=== PATIENT | female | born 1935 ===

== ENCOUNTER → 2023-06-08 14:59 | Outpatient (REF) | payer MEDICARE, OTHER, SELFPAY | LOC: PAVMRI 14:59 | PROVIDERS: ATTENDING PHYSICIAN Specialist; FAMILY PHYSICIAN Internal Medicine | DX: M54.16 Radiculopathy, lumbar region (principal) | CPT/HCPCS: 72148 ==

== ENCOUNTER → 2023-06-24 12:35 | Outpatient (REF) | payer MEDICARE, OTHER, SELFPAY | LOC: DHCBC HW 12:35 | PROVIDERS: ATTENDING PHYSICIAN Internal Medicine Cardiovascular Disease; FAMILY PHYSICIAN Internal Medicine | DX: I48.0 Paroxysmal atrial fibrillation (principal); Z95.2 Presence of prosthetic heart valve | CPT/HCPCS: 93306 ==

== ENCOUNTER → 2024-06-28 10:29 | Outpatient (REF) | payer MEDICARE, OTHER, SELFPAY | LOC: HWRCS 10:29 | PROVIDERS: ATTENDING PHYSICIAN Internal Medicine Cardiovascular Disease; FAMILY PHYSICIAN Internal Medicine | DX: I48.0 Paroxysmal atrial fibrillation (principal); Z95.2 Presence of prosthetic heart valve | CPT/HCPCS: 93306 ==

== ENCOUNTER 2024-11-19 23:14 | Observation (INO) | payer MEDICARE, OTHER, SELFPAY ==
[2024-11-19 20:03] VITALS: BP 150/74
[2024-11-19 20:07] VITALS: BP 151/73
[2024-11-19 20:31] LABS: Hematocrit 35.8 % (37.0-47.0); Hemoglobin 11.9 g/dL (12.0-16.0); Mean Corp Hgb Conc. 33.2 g/dL (33.0-37.0); Mean Corpuscular Volume 94.7 fL (81.0-99.0); Nucleated Red Blood Cells % 0 %; Platelet Count 205 10^3/uL (130-400); Red Cell Dist. Width 13.9 % (11.5-14.5)
--- NOTE | 2024-11-19 20:38 | ED.GENMED ---
History of Present Illness
General
Chief Complaint: Fainting/Passed Out
Source: patient and family
Exam Limitations: none
Time Seen by Provider: 11/19/24 20:38
History of Present Illness
History of Present Illness:
Patient had been at a wedding. She felt like she had to go to the bathroom. She was wheeled into the bathroom. Before she get into the stool she passed out. They said her heart rate was low and she was pale. She had no preceding chest pain or
shortness of breath. She is at baseline now. There was no trauma. She had a similar episode 1 month ago while on the toilet and was taken to [place] and cleared.
Past History
Past History
ED Past Medical History: CVA, GERD and Valvular disease
ED Past Surgical History: Cardiac
Social History
Tobacco: Non-smoker
Living: with family
Phy Exam
Physical Exam
Physical Exam:
GENERAL: Alert and oriented in no apparent distress. Normocephalic atraumatic
EYE: Orbits normal.
NECK: Supple, no significant adenopathy.
ENT: Pharynx without erythema
CARDIAC: Regular rate and rhythm without any obvious murmurs.
LUNGS: Clear breath sounds,normal
ABDOMEN: Soft, without focal tenderness or distention
NEUROLOGICAL: Alert and oriented , grossly non-focal. Cranial nerves II through XII intact. Speech normal.
SKIN: Warm and dry, no rash or lesion, no discoloration, skin intact.
MUSCULOSKELETAL: No edema,no deformity.Good color
PSYCH: Normal and appropriate interaction.
Course
Orders/Labs/Results
Orders:
Orders
11/19/24 20:17
Electrocardiogram (*1) Urgent
Reason for Study: Syncope
EKG- Treatment ONCE
11/19/24 20:23
Complete Blood Count/With Diff Urgent
Comprehensive Metabolic Panel Urgent
11/19/24 20:57
0.9% Sodium Chloride 500 ml [Nss] 500 ml IV BOLUS
11/19/24 20:59
Troponin I Urgent
Abnormal Lab Results
11/19/24
20:23
RBC 3.78 L 10^6/uL
(4.20-5.40)
Hgb 11.9 L g/dL
(12.0-16.0)
Hct 35.8 L %
(37.0-47.0)
MCH 31.5 H pg
(27.0-31.0)
Absolute Neuts (auto) 6.8 H 10^3/uL
(1.4-6.5)
Lymphocytes % 16.2 L %
(20.5-51.1)
Chloride 108 H mmol/L
(98-107)
BUN 28 H mg/dl
(7-17)
Creatinine 1.3 H mg/dL
(0.6-1.0)
Glucose 133 H mg/dl
(70-99)
Total Protein 6.1 L g/dl
(6.3-8.2)
11/19/24 20:23
11/19/24 20:23
Vital Signs
Initial and Last Documented VS:
Initial Vital Signs
Temp Pulse Resp BP Pulse Ox
97.4 F 68 16 150/74 98
11/19/24 20:03 11/19/24 20:03 11/19/24 20:03 11/19/24 20:03 11/19/24 20:03
Last Documented Vital Signs
Temp Pulse Resp BP Pulse Ox
97.4 F 67 18 151/73 100
11/19/24 20:03 11/19/24 20:45 11/19/24 20:45 11/19/24 20:07 11/19/24 20:45
MDM/Problems Addressed
Differential Diagnosis Includes:
This was very likely vasovagal syncope. Patient is stable. Previous episode also sounds consistent with vasovagal. Will monitor check labs check cardiac testing. Then make a joint decision with family of admission overnight versus discharge
*Pulse Oximetry
SaO2: 98
Oxygen Mode of Delivery: Room air
Patient hypoxic: no
*EKG
Interpreted by ED Provider?: Yes
Interpretation: normal
Comparison EKG: no comparison EKG present
Heart Rate: 62
Rate: normal
Rhythm: sinus
[place]: normal axis
Interval: normal interval
QRS Pattern: normal QRS and left vent hypertrophy
Ischemia: non-specific ST changes
*Critical Care Note
Total Time (30-74mins, 75-104mins- exclusive of procedures): Not Applicable
ED Attending Note
-
Portions of this chart may have been created with voice recognition software.� Occasional wrong word or��sound alike� substitutions may have occurred due to the inherent limitations of voice recognition software.
Discharge Plan
Departure
Patient Disposition: Admit
Date of Disposition: 11/19/24
Time of Disposition: 22:32
Presentation/result/management discussed w/ accepting MD/DO: Hospitalist
Discharge Problem:
Syncope
Prescriptions:
No Action
amiodarone 200 mg Tablet
200 mg PO DAILY
lisinopril 10 mg Tablet
10 mg PO DAILY
rosuvastatin 5 mg Tablet
5 mg PO HS
trazodone 50 mg Tablet
50 mg PO HS
buprenorphine 5 mcg/hour Patch Weekly
1 patch TRANSDERMAL Q7D
acetaminophen 500 mg tablet
1,000 mg PO TID
docusate sodium [Colace] 100 mg capsule
100 mg PO HS
aspirin 81 mg Capsule
81 mg PO DAILY
Referrals:
UNKNOWN - PT DOES,NOT KNOW [Family Provider]
Interventions
Interventions:
*Risk Screen - Suicide Last Done: 11/19/24 20:03
*General Assessment Last Done: 11/19/24 20:18
*Neglect/Abuse Screening Last Done: 11/19/24 20:03
ED- Cardiac Assessment Last Done: 11/19/24 20:18
ED- Neurological Assessment Last Done: 11/19/24 20:18
Discharge Date and Time
Print Language: UKRAINIAN
[2024-11-19 20:57] LABS: ALT (SGPT) 18 U/L (0-35); AST (SGOT) 25 U/L (14-36); Albumin 4.1 g/dl (3.5-5.0); Alkaline Phosphatase 46 U/L (38-126); Blood Urea Nitrogen 28 mg/dl (7-17); Calcium 8.9 mg/dl (8.4-10.2); Carbon Dioxide 23 mmol/L (22-30); Chloride 108 mmol/L (98-107); Glucose 133 mg/dl (70-99); Potassium 4.5 mmol/L (3.5-5.1); Sodium 138 mmol/L (135-145); Total Protein 6.1 g/dl (6.3-8.2); eGFR 39.31
[2024-11-19] MEDS: NSS 500 IV (21:11)
[2024-11-19 21:30] LABS: Troponin I 0.017 ng/ml
--- NOTE | 2024-11-19 22:36 | HPS.HSE ---
Family Physician
-
Family Physician: NOT KNOW UNKNOWN - PT DOES
Chief Complaint
-
Syncope
History of Present Illness
Patient is an 89 y/o female past medical history of CVa, valvular heart disease, atrial fibrillation, hypertension, chronic kidney disease and chronic pain syndrome who presents following a syncopal episode. Patient was out to dinner at a local
dinner. She had the sudden urge to move her bowels. Her caregiver took her into the bathroom. Patient was unable to transfer from her wheelchair to the toilet due to the configuration of the restroom. While still in the bathroom patient had a
syncopal episode. EMS was called who noted patient to appear pale and have a low heart rate. Patient denies any preceding chest pain or palpitations. Family notes had a similar episode about a month ago which was also related to bowel movement.
Upon further discussion with patient's caregiver we learned that patient has been complaining about constipation and drank prune juice earlier today.
Medical History
Past Medical History
Past Medical History: Reports Other
Additional Past Medical History:
CVA with Residual Right Hemiparesis, Ataxia and Foot Drop
Aortic Stenosis s/p TAVR
Paroxysmal Atrial Fibrillation s/p Watchman Device
Essential Hypertension
Hyperlipidemia
CKD Stage IIIB
Obstructive Sleep Apnea
Anxiety / Insomnia
Chronic Pain Syndrome
Past Surgical History: Reports Other
Additional Past Surgical History:
TAVR
Watchman Device
Left Total Knee Replacement
Social History
Tobacco: Non-smoker
Family History
Family History: Not pertinent
Allergies / Home Medications
Allergies reflects when Allergies were last updated in [employer].
Home Medications with original date entered in [employer]
Allergy/Medication List:
Allergies
Allergy/AdvReac Type Severity Reaction Status Date / Time
No Known Allergies Allergy Verified 11/19/24 20:08
Home Medications
amiodarone 200 mg tablet 200 mg PO DAILY Arrhythmia 12/30/22
lisinopril 10 mg tablet 10 mg PO DAILY Blood Pressure 12/30/22
rosuvastatin 5 mg tablet 5 mg PO HS High Cholesterol 12/30/22
acetaminophen 500 mg tablet 1,000 mg PO TID 11/19/24
aspirin 81 mg capsule 81 mg PO DAILY 11/19/24
buprenorphine 5 mcg/hour weekly transdermal patch 1 patch transdermal Q7D 11/19/24
docusate sodium 100 mg capsule (Colace) 100 mg PO HS stool softner 11/19/24
trazodone 50 mg tablet 50 mg PO HS 11/19/24
Review of Systems
-
A 12 point ROS was completed and negative except as noted: Yes
Constitutional: Denies Fever or Chills
Respiratory: Denies Cough or Trouble Breathing
Cardiac: Reports See HPI
Physical Exam
Vital Signs
Vital Signs
Temp Pulse Resp BP Pulse Ox
97.4 F 67 18 151/73 100
11/19/24 20:03 11/19/24 20:45 11/19/24 20:45 11/19/24 20:07 11/19/24 20:45
Physical Exam
General: Comfortable and Conversant
HEENT: Anicteric and Moist mucous membranes
Respiratory: Clear and Non Labored Respirations
Cardiac: S1/S2, Regular Rhythm and Murmur
GI: Soft, Non Tender and Other (Slightly hyperactive bowel sounds)
Musculoskeletal: No Clubbing and No Cyanosis
Skin: Warm and Dry
Neuro: Awake, Alert and Other (Chronic right hemiparesis)
Psych: Calm
Laboratory Results
-
11/19/24 20:23
11/19/24 20:23
Laboratory Results
Total Bilirubin 0.6 mg/dl (0.2-1.3) 11/19/24 20:23
AST 25 U/L (14-36) 11/19/24 20:23
ALT 18 U/L (0-35) 11/19/24 20:23
Alkaline Phosphatase 46 U/L (38-126) 11/19/24 20:23
Troponin I 0.017 ng/ml 11/19/24 20:59
Data Reviewed
-
Lab Data: Labs Reviewed by me
Old Records: Reviewed
Impression/Plan
-
Syncope, suspect vasovagal in nature
-Monitor on telemetry
-Check orthostatic vital signs
Constipation
-Reviewed with patient to avoid prune juice in the future
-Start MiraLAX
Paroxysmal Atrial Fibrillation s/p Watchman Device
-Continue amiodarone
Essential Hypertension
-Continue lisinopril
Hyperlipidemia
-Continue rosuvastatin
CKD Stage IIIB
-Creatinine at baseline
Anxiety / Insomnia
-Continue trazodone
Chronic Pain Syndrome
-Continue buprenorphine patch
Hx CVA with Residual Right Hemiparesis, Ataxia and Foot Drop
-Continue aspirin
Hx Aortic Stenosis s/p TAVR
DVT proph: SCDs
--- NOTE | 2024-11-19 22:38 | W.PN.UPDATE ---
Update Note
Progress Note Update
Patient seen in conjunction with ASSEMBLY SUPERVISOR. I agree with the findings on history and physical. Concur with assessment and plan unless stated otherwise.
Briefly, this is a 89-year-old female with past medical history significant for atrial fibrillation on amiodarone status post watchman, s/p TAVR and not anticoagulated, hypertension, hyperlipidemia, history of sleep apnea presenting to the
emergency department after experiencing a syncopal episode at home witnessed by family members.
Patient had been at a wedding and was being wheeled to go to the bathroom. Before she could get on the stool she had a syncopal episode. He is not clear for exactly how long. Family reported that she appeared pale with low heart rate and was
unresponsive, loudly snoring. She came back to while in the ambulance en route to the emergency department. She had no prior complaints and appears to be back at baseline. Family reports a similar episode 1 month ago while on the toilet for which
she was taken to [place] and evaluation was negative for any organic process at that time.
Patient has been fixated on bowel movements recently. She is taking laxatives which she finds to be intermittently ineffective. Today she took laxatives as well as additional prune juice during the daytime. She started noticing abdominal cramps
and needed to use the toilet. She denied having nausea. She did not vomit. She does PA down to have a bowel movement and it appears that she started having difficulty while going for a bowel movement. She has chronic back pain and is mostly
wheelchair-bound. She is on buprenorphine patch for chronic pain as she is not a candidate for any surgical procedure and failled spinal stimulator.
He reports no recent medication changes. She has had no complaints of palpitations lightheadedness or dizziness. Denies any recent melena or hematochezia. There is been no recent diarrhea. There have been no recent chest pain or exertional
dyspnea.
In the emergency department she was afebrile, blood pressure was 150/70 with a pulse of 67 and she was satting 100% on room air. ECG showed a normal sinus rhythm without any interval abnormalities. Troponin was negative. CBC was unremarkable.
Electrolytes were all normal. BUN/creatinine were unchanged from prior at 28 and 1.3 with a normal glucose of 133.
Echo from June 2024 shows preserved EF of 65%, normal wall motion, normal RV, s/p TAVR showing well seated valves with 26/15 mmHg peak/mean gradient. There was stable LA enlargement.
Assessment and plan
Syncope - Highly suspicious for a vasovagal episode. She has been having large, watery BMS 2/2 laxative use since arrival in ED. No evidence of dehydration. No evidence of acute infection.
- admit to telemetry observation x 24 hours
- orthostatic vs
- s/p small fluid bolus in ED
- cycle cardiac enzymes x 1
- hold aggressive laxatives as patient having voluminous bm
- recent echo normal
- PT eval in am
DVT PPX - SCDs
Code status - Full Code
[2024-11-19 23:00] VITALS: BP 141/82
[2024-11-20] VITALS (8 sets, daily range): BP systolic 139–172; BP diastolic 63–85; PULSE 67–82; BMI 25.8
--- NOTE | 2024-11-20 04:12 | PTCARENOTE ---
Patient received from ED via stretcher with belongings. Telemetry order, NSR on monitor- strip placed in patient chart. AAOx3 VENETIE IRA- patient left B/L hearing aides and glasses at home. Patient w/ x1 Bupren patch to LUE (verified/ cosigned by second
RN) Patch last placed on November 13 and due to be changed November 20. This RN asked patient to have family/caregiver bring medication in to be profiled. House FOOD BEVERAGE MANAGER and pharmacy made aware. PMH and medications reviewed by this RN and
patient. Patient oriented to room and call montano within reach.
[2024-11-20] MEDS: PACERONE 200 MG PO (08:31)
[2024-11-20] MEDS: ASPIR LOW (ENTERIC COATED) 81 MG PO (08:31)
[2024-11-20] MEDS: ZESTRIL PO (08:31)
[2024-11-20] MEDS: ZESTRIL 10 MG PO (08:45)
[2024-11-20 08:57] LABS: Hematocrit 30.6 % (37.0-47.0); Hemoglobin 10.4 g/dL (12.0-16.0); Mean Corp Hgb Conc. 34.0 g/dL (33.0-37.0); Mean Corpuscular Volume 95.0 fL (81.0-99.0); Platelet Count 170 10^3/uL (130-400); Red Cell Dist. Width 14.0 % (11.5-14.5)
[2024-11-20 09:19] LABS: Blood Urea Nitrogen 29 mg/dl (7-17); Calcium 8.5 mg/dl (8.4-10.2); Carbon Dioxide 23 mmol/L (22-30); Chloride 110 mmol/L (98-107); Estimated Creatinine Clearance 26 ml/min; Glucose 101 mg/dl (70-99); Potassium 4.8 mmol/L (3.5-5.1); Sodium 137 mmol/L (135-145); eGFR 48.03
--- NOTE | 2024-11-20 14:35 | W.DCSUMMARY ---
Discharge Summary
Discharge Data
Date of Admission: 11/19/24
Date of Discharge: 11/20/24
Total time spent discharging patient (in min): 45
-
Pending Results: No
Hospital Course
Ms. Simms is a 89-year-old female with a medical history of A-fib (Watchman device), aortic stenosis (status post TAVR), CVA (residual right hemiparesis, ataxia, and foot drop), CKD stage IIIb, hypertension, chronic pain syndrome (transdermal
buprenorphine), and obstructive sleep apnea who presented after a syncopal episode at a restaurant. She was attempting to go to the bathroom to have a bowel movement but was having difficulty fitting into stall with her wheelchair. She ended up
deciding to hold on having her bowel movement until later when she got home, however she subsequently syncopized. She regained consciousness in the ambulance en route to the hospital. She reportedly did not appear to be postictal at that time.
She has had at least 1 similar episode previously for which she was evaluated at [facility] with a generally negative workup. She has had an echocardiogram in June 2024 which showed a well-seated and appropriately functioning prosthetic
aortic valve and severely dilated left atrium.
In the ED at the time of this admission she was hemodynamically stable. Her EKG showed normal sinus rhythm with no acute changes. Her labs were generally unremarkable other than the mild anemia which appeared stable. She received IV fluids and
was admitted for further evaluation. She did have multiple large bowel movements on the way to the hospital and was experiencing abdominal cramping when first admitted to the hospital. She reported having taken MiraLAX and prune juice earlier in
the day due to problems with chronic constipation not relieved with stool softeners. Her presentation is consistent with vasovagal syncope related to her bowel habits. She has been advised to stay well-hydrated and avoid straining with bowel
movements (or straining to hold back a bowel movement) if possible. Orthostatic vital signs were negative. She had no abnormal activity on telemetry monitoring. She was evaluated by PT/OT who recommended home health. She was medically stable for
discharge. She will need to follow-up with her primary care physician and with her scrap yard worker.
General: No Apparent Distress, Comfortable and Conversant
HEENT: NormoCephalic, Moist mucous membranes, Atraumatic
Respiratory: Clear and Non Labored Respirations
Cardiac: S1/S2 and Regular Rhythm; No Rub or Gallop
GI: Soft, Non Tender, Non Distended and Normal Bowel Sounds
Musculoskeletal: No Edema, no deformity
: NO Cain
Neuro: Awake, Alert, Nonfocal/grossly intact
Psych: Calm and Intact Judgment/Insight
Discharge Plan
-
Patient Disposition: Home (Routine Discharge)
Discharge Diagnosis/Procedures: Vasovagal syncope
Activity Restrictions/Additional Instructions:
Ms. Simms is a 89-year-old female with a medical history of A-fib (Watchman device), aortic stenosis (status post TAVR), CVA (residual right hemiparesis, ataxia, and foot drop), CKD stage IIIb, hypertension, chronic pain syndrome (transdermal
buprenorphine), and obstructive sleep apnea who presented after a syncopal episode at a restaurant. She was attempting to go to the bathroom to have a bowel movement but was having difficulty fitting into stall with her wheelchair. She ended up
deciding to hold on having her bowel movement until later when she got home, however she subsequently syncopized. She regained consciousness in the ambulance en route to the hospital. She reportedly did not appear to be postictal at that time.
She has had at least 1 similar episode previously for which she was evaluated at [facility] with a generally negative workup. She has had an echocardiogram in June 2024 which showed a well-seated and appropriately functioning prosthetic
aortic valve and severely dilated left atrium.
In the ED at the time of this admission she was hemodynamically stable. Her EKG showed normal sinus rhythm with no acute changes. Her labs were generally unremarkable other than the mild anemia which appeared stable. She received IV fluids and
was admitted for further evaluation. She did have multiple large bowel movements on the way to the hospital and was experiencing abdominal cramping when first admitted to the hospital. She reported having taken MiraLAX and prune juice earlier in
the day due to problems with chronic constipation not relieved with stool softeners. Her presentation is consistent with vasovagal syncope related to her bowel habits. She has been advised to stay well-hydrated and avoid straining with bowel
movements (or straining to hold back a bowel movement) if possible. Orthostatic vital signs were negative. She had no abnormal activity on telemetry monitoring. She was evaluated by PT/OT who recommended home health. She was medically stable for
discharge. She will need to follow-up with her primary care physician and with her scrap yard worker.
Referrals:
UNKNOWN - PT DOES,NOT KNOW [Family Provider]
Prescriptions:
Continued
amiodarone 200 mg Tablet
200 mg PO DAILY
lisinopril 10 mg Tablet
10 mg PO DAILY
rosuvastatin 5 mg Tablet
5 mg PO HS
trazodone 50 mg Tablet
50 mg PO HS
buprenorphine 5 mcg/hour Patch Weekly
1 patch TRANSDERMAL Q7D
acetaminophen 500 mg tablet
1,000 mg PO TID
docusate sodium [Colace] 100 mg capsule
100 mg PO HS
aspirin 81 mg Capsule
81 mg PO DAILY
Discharge Orders:
Discharge Patient (As Directed); Ordered 11/20/24
Ordered By: Chava Allred
Discharge Date and Time
Print Language: KINYARWANDA
--- NOTE | 2024-11-20 14:53 | CM ---
Addendum entered by Lorin Everett 11/20/24 15:39:
Davy GARCIA
Original Note:
CM reviewed chart, patient seen bedside with multiple family members, initial assessment completed. Patient resides in a one story home, ramp access, with manager delivery. Patient has a rolling walker and transport chair in the home. CM reviewed
therapy recommendations of home health, patient reports she is current with Davy GARCIA, will place [facility] referral in [facility]. PCP Rizwana Maxwell, pharmacy [facility]. DEL CID form verbally reviewed, provided with copy, placed in chart. Patients
family will provide transport home. CM will continue to follow for all discharge planning needs.
Plan; home with caregiver, Davy SAAVEDRA
== END 2024-11-20 16:02 | disposition home or self-care (01) ==
LOC: 4 EAST ACU 23:14
PROVIDERS: Physician Assistant Medical; ADMITTING PHYSICIAN Internal Medicine; ATTENDING PHYSICIAN Internal Medicine; EMERGENCY PHYSICIAN Emergency Medicine
DX: R55 Syncope and collapse (principal); R10.9 Unspecified abdominal pain; K59.09 Other constipation; I69.351 Hemiplegia and hemiparesis following cerebral infarction affecting right dominant side; K21.9 Gastro-esophageal reflux disease without esophagitis; I48.0 Paroxysmal atrial fibrillation; I12.9 Hypertensive chronic kidney disease with stage 1 through stage 4 chronic kidney disease, or unspecified chronic kidney disease; E78.5 Hyperlipidemia, unspecified; N18.32 Chronic kidney disease, stage 3b; G47.33 Obstructive sleep apnea (adult) (pediatric); G47.00 Insomnia, unspecified; F41.9 Anxiety disorder, unspecified; G89.4 Chronic pain syndrome; R27.0 Ataxia, unspecified; M21.379 Foot drop, unspecified foot; D64.9 Anemia, unspecified; Z79.82 Long term (current) use of aspirin; Z95.2 Presence of prosthetic heart valve; Z96.652 Presence of left artificial knee joint
CPT/HCPCS: 80048; 80053; 84484; 85025; 85027; 93005; 96360; 96361; 97162; 99284; G0378

== ENCOUNTER → 2024-12-26 12:42 | Outpatient (REF) | payer MEDICARE, OTHER, SELFPAY | LOC: HWRCS 12:42 | PROVIDERS: ATTENDING PHYSICIAN Student in an Organized Health Care Education/Training Program; FAMILY PHYSICIAN Internal Medicine | DX: R55 Syncope and collapse (principal) | CPT/HCPCS: 93308 ==